=== PATIENT | male | born 1990 | race American Indian/Alaskan Native ===

== ENCOUNTER 2021-10-26 04:15 | Emergency (ER) | payer SELFPAY ==
[2021-10-26] MEDS ORDERED: ACETAMINOPHEN 500 MG TAB PO ONE (04:33)
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
[2021-10-26 10:39] VITALS: BP 109/60
--- NOTE | 2021-10-28 21:24 | Electrocardiograph Report ---
[facility] Test Date: 2021-10-26 Test Time: 04:28:01 Pat Name: OPHELIA TIPTON Department: Room: Gender: M Postie: : 1990 Requested By: ELIOT GARCIA Order Number: [id number] Reading MD: Jeannie Neff Measurements Intervals [place] Rate: 99 P: 56 [place]: 142 QRS: 83 QRSD: 87 T: 58 QT: 326 QTc: 418 Interpretive Statements Sinus rhythm Normal ECG No previous ECG available for comparison Electronically Signed On 10-28-2021 21:23:57 EDT by Jeannie Neff
== END 2021-10-26 10:52 | disposition home or self-care (01) ==
LOC: ED 04:15
DX: M79.10 Myalgia, unspecified site (principal); M54.9 Dorsalgia, unspecified; F17.200 Nicotine dependence, unspecified, uncomplicated; Y08.89XA Assault by other specified means, initial encounter; Y93.89 Activity, other specified; Y92.89 Other specified places as the place of occurrence of the external cause; Y99.8 Other external cause status
CPT/HCPCS: 93005; 99282